=== PATIENT | male | born 1975 | race Caucasian/White ===

== ENCOUNTER 2024-05-22 13:18 | Inpatient (IN) | payer OTHER, SELFPAY ==
[2024-05-22] VITALS (9 sets, daily range): BP systolic 128–149; BP diastolic 62–95; PULSE 102–128; RESP 16–20; TEMP 36.1–36.8; O2SAT 94–97; BMI 36.3; BMI 31.8
--- NOTE | 2024-05-22 13:25 | EKG12_ITS ---
Test Reason : AM EKG Blood Pressure : / mmHG Vent. Rate : 093 BPM Atrial Rate : 093 BPM P-R Int : 156 ms QRS Dur : 138 ms QT Int : 386 ms P-R-T Axes : 052 -47 -15 degrees QTc Int : 479 ms Normal sinus rhythm Right bundle branch block Left anterior fascicular block Bifascicular block Anteroseptal infarct , age undetermined Abnormal ECG When compared with ECG of 22-MAY-2024 14:33, MANUAL COMPARISON REQUIRED, DATA IS UNCONFIRMED Confirmed by Jose Hall ([id number]), film or videotape editor MICAH MANUEL ([id number]) on 05/26/2024 9:28:42 AM Referred By: Confirmed By:Jose Hall
--- NOTE | 2024-05-22 13:31 | ED.VIS.DYS ---
HPI History of Present Illness Chief Complaint: Shortness of Breath Detail of Chief Complaint: Exertional dyspnea and chest pain. Informant: patient and spouse/S.O. Onset/Context/Timing Onset: Days Context: gradual Timing: Intermittent Quality: Positive for Dyspnea on exertion Current Severity: Mild Maximum Severity: Mild Worsened by: Exertion Relieved by: Rest Associated Symptoms Chest Pain: Positive for Intermittent Narrative Narrative: 49-year-old male history of diabetes. No prior cardiac disease. No history of DVT or PE or risk factors. For the last 5 to 6 days has had exertional shortness of breath which she is noted is much more than his baseline. And he is also had some exertional chest discomfort. Today wanting to see his primary care provider nurse practitioner at the local [facility]. And she sent him to the ER for further evaluation. He denies any recent travel, surgery or immobilization. He denies any calf pain or swelling. He denies any hemoptysis. Currently he is not having any chest pain. PE Risk Factors: Negative for Cancer, OCP + Smoking + > 35, Prior DVT or PE, Recent immobilization, Recent surgery or Recent travel Prior similar symptoms: No Recent Illness/Hospitalization: No PFSH [facility] Medical History (Updated 05/22/24 @ 14:[address] Ramy Beck MD) Diabetes mellitus Home Medications ?Medication ?Instructions ?Recorded ?Last Taken ?Type insulin lispro protamine-lispro 40 unit subcut BID 05/22/24 Unknown History 100 unit/mL (75-25) subcutaneous pen (Humalog Mix 75-25 KwikPen) metformin 1,000 mg tablet 1,000 mg PO BID 05/22/24 Unknown History Allergy/AdvReac Type Severity Reaction Status Date / Time No Known Allergies Allergy Verified 05/22/24 13:20 Surgical History (Updated 05/22/24 @ 13:40 by Shell Salguero) Hx of cholecystectomy Social History Smoking Status: Never smoker ROS ROS ED ROS Narrative Denies recent illness. He has had recent exertional dyspnea and exertional chest pain. Constitutional Constitutional ED: Denies chills or fever(s) Eyes Eyes: Denies blurry vision ENT ENT ED: Denies ear pain Cardiovascular Cardiovascular: Reports chest pain Respiratory/Chest Respiratory/Chest: Reports dyspnea on exertion Gastrointestinal Gastrointestinal: Denies abdominal pain, constipation, diarrhea or melena Genitourinary Genitourinary ED: Denies dysuria or hematuria Musculoskeletal Musculoskeletal: Denies arthralgias, back pain, myalgias or neck pain Integumentary Denies abscess, Abrasions or rash Neurologic Neurologic: Denies headache(s) Psychiatric Psychiatric: Denies anxiety, depression or suicidal ideation Endocrine Endocrinology: Denies cold intolerance or heat intolerance Hematologic/Lymphatic Hematologic/Lymphatic: Denies easy bleeding, easy bruising or lymphadenopathy Allergic/Immunologic Allergic/Immunologic ED: Denies mouth swelling, tongue swelling or urticaria EXAM Physical Exam Narrative Exam Narrative: 49-year-old male status vital signs stable afebrile. No acute distress. at bedside. H EENT exam unremarkable. Neck nontender JVD. Lungs clear to auscultation bilateral. Heart regular just go dictated regular rhythm rate about 110 no murmur. Chest wall ribs nontender. Abdomen soft nontender. Moving all 4 extremities. Nontender no edema. No cords. Neurologically is awake and alert no focal motor deficits. Const Vital Signs: 05/22/24 13:20 Temperature 97 F L Temperature Source Temporal Pulse Rate 128 H Respiratory Rate 20 H Blood Pressure 148/95 H Blood Pressure Mean 112 Pulse Ox 97 Oxygen Delivery Method Room Air Positive well nourished and well developed; Negative for cachectic, contractures or unkempt General Appearance ED: well developed and NAD; Negative for unkempt, cachectic, contractures or pallor Nutritional Appearance: Negative for cachectic HEENT Reports moist mucous membranes atraumatic; Negative for trauma or tenderness Eyes PERRL and EOMs intact bilaterally General Eye ED: Negative for pale conjunctiva or scleral icterus Neck no lymphadenopathy, supple, no meningeal signs and no JVD General: Negative for tenderness Lymph Lymphatic: Negative for other Chest Wall Chest: Negative for other Resp normal respiratory effort and clear to auscultation bilaterally Effort and Inspection: Negative for pain with movement Auscultation: Negative for rales, rhonchi, wheezes or diminished lung sounds Cardio regular rhythm, S1 normal heart sound, S2 normal heart sound and no murmurs; Negative for regular rate Rate: tachycardic Rhythm: Negative for abnormal rhythm GI non-tender, non-distended and no masses Inspection: Negative for other Palpation: soft; Negative for tender or rebound tenderness present Back/Spine no CVA tenderness and normal to inspection General Back: Negative for CVA tenderness or tenderness Extremity normal to inspection General Extremety ED: Negative for edema, tenderness or other findings General Extremity: Negative for edema or other findings Neuro oriented x3 and CN's II-XII intact bilaterally Sensorium / Orientation: alert, oriented to person, oriented to place and oriented to time; Negative for orientation impaired, confused or lethargic Speech: speech normal Motor Exam: strength 5/5 throughout Psych mental status grossly normal Appearance: Negative for unkempt Attitude: No agitated Mood & Affect: Negative for depressed, anxious or tearful Thought Process: No normal thought process Skin no wounds and skin turgor normal General Skin Exam: Negative for jaundice or pallor Lesions: no lesions Rashes: no rashes Trauma: Negative for abrasion, laceration or puncture MDM MDM MDM Narrative Medical decision making narrative: 49-year-old diabetic male with exertional chest pain exertional dyspnea. Concerning for angina. Undergo cardiac workup. His exam is normal. There is no reproducible pain. He has no history or risk of DVT or PE. I did explain to him already that no matter what his test show I would plan on admitting him for further cardiac evaluation but is a very concerning story for possible coronary disease. Repeat exam unchanged patient doing well at 2:04 PM. I went over test results both he and his . Hospitalist on page for admission. History & Record Review Discussion w/independent historian: Patient and Family Additional record(s) reviewed:: Prior inpatient record, Prior outpatient record, Prior ED visit and Prior labs Lab Data Attestation: I reviewed the patient's lab results. Lab results narrative: CBC normal. White count 8. H&H 15 and 46. Platelets 359. Electrolytes show sodium 133. Gap 8. Normal BUN and creatinine. Glucose 428. Troponin is elevated at 935. Chest x-ray shows borderline cardiomegaly with vascular congestion in the bases. Labs: Laboratory Results - last 24 hr 05/22/24 13:25 WBC 8.5 RBC 5.18 Hgb 15.1 Hct 46.9 MCV 90.5 MCH 29.2 MCHC 32.2 RDW Std Deviation 43.5 RDW Coeff of Lisa 13.2 Plt Count 359 MPV 11.0 Immature Gran % (Auto) 0.500 Neut % (Auto) 70.8 H Lymph % (Auto) 18.3 L [place] % (Auto) 8.4 Eos % (Auto) 1.5 Baso % (Auto) 0.5 Absolute Neuts (auto) 6.0 Absolute Lymphs (auto) 1.55 Nucleated RBC % 0 Sodium 133 L Potassium 4.1 Chloride 100 Carbon Dioxide 25.0 Anion Gap 8 BUN 11 Creatinine 1.10 Estim Creat Clear Calc 111.36 Est GFR (MDRD) Af Amer 91 Est GFR (MDRD) Non-Af 75 BUN/Creatinine Ratio 10.0 Glucose 428 H Calcium 9.4 Troponin I High Sens 935 H* Radiography Chest X-Ray - ED: 1 View, Read by ED Physician, Lungs, Mediastinum, Bony Structures and Chronic Changes Diagnostic Testing: Chest x-ray, portable, single view interpreted by myself shows borderline cardiomegaly. Vascular congestion in both bases. Rhythm Strip Rhythm Strip: Sinus Tach Rate: 101 Ectopy: None EKG Initial EKG: Attestation: I personally reviewed and interpreted this EKG as follows: Interpretation: Sinus Tachycardia Comments: Sinus tachycardia 101. Right bundle branch block. Left anterior fascicular block. No acute ST elevation. A Discharge Plan Triage Chief Complaint: Shortness of Breath ED Provider: Ramy Beck Dx/Rx/DC Orders Clinical Impression: Chest pain, exertional, Exertional dyspnea, Non-ST elevated myocardial infarction, Diabetes, Acute hyperglycemia Prescriptions: No Action insulin lispro protamin-lispro [Humalog Mix 75-25 KwikPen] 100 unit/mL (75-25) insulin pen 40 unit subcut BID metformin 1,000 mg tablet 1,000 mg PO BID Primary Care Provider: Renee Hoyos Referrals: Renee Hoyos, [employer] [Primary Care Provider] - Print Language: Sami Disposition Disposition: Acute Care Hospital [facility]
[2024-05-22 13:36] LABS: Absolute Lymphocyte Count 1.55 X10^3/uL (0.83-4.51); Basophil# 0.04 X10^3/uL; Basophil% 0.5 % (0-1); Eosinophil# 0.13 X10^3/uL; Eosinophils% 1.5 % (0-5); Hematocrit 46.9 % (40-54); Hemoglobin 15.1 g/dL (13.0-16.5); Lymphocyte # 1.55 X10^3/ul (0.83-4.51); Lymphocyte % 18.3 % (19-41); Mean Corp Hgb Conc 32.2 g/dL (32-36); Mean Corpuscular Hgb 29.2 pg (27.0-32.0); Mean Corpuscular Volume 90.5 fL (80-94); Monocyte# 0.71 X10^3/uL; Monocyte% 8.4 % (0-10); NRBC Flagged by Analyzer 0 % (0-5); Neutrophil # 5.99 X10^3/uL (2.7-7.7); Neutrophil % 70.8 % (47-70); Platelet Count 359 K/mm3 (150-450); RBC Distribution Width CV 13.2 % (11.6-14.6); RBC Distribution Width SD 43.5 fl (35.1-43.9); Red Blood Count 5.18 M/mm3 (4.6-6.2); White Blood Count 8.5 K/mm3 (4.4-11.0)
--- NOTE | 2024-05-22 13:40 | RAD_ITS ---
INDICATION: chest pain EXAMINATION/TECHNIQUE: X-RAY - XR Chest 1 View COMPARISON: No relevant prior comparison study available FINDINGS: LINES/DEVICES: None. LUNGS: Prominence of the pulmonary vasculature and interstitial markings. Blunting of the right costophrenic angle. MEDIASTINUM AND CARDIOVASCULAR STRUCTURES: Cardiac silhouette not enlarged. Central airways and mediastinal contour are unremarkable. BONES AND SOFT TISSUES: Unremarkable. RAD/Chest 1 View (Portable) IMPRESSION: Pulmonary venous congestion with probable mild interstitial pulmonary edema. Electronically Signed: Christian Huff MD at 14:20 EDT ,
[2024-05-22] MEDS: Aspirin 81 MG TAB.CHEW 324 MG PO (13:51)
[2024-05-22 13:57] LABS: Anion Gap 8 (5-15); BUN 11 mg/dL (7-18); Calcium,Total 9.4 mg/dL (8.5-10.1); Chloride 100 mmol/L (98-107); EST Glomerular Filtration Rate 75 mL/min (>60); Est Glom Filt Rate - Afr Amer 91 mL/min (>60); Estimated Creatinine Clearance 111.36 ml/min; Glucose 428 mg/dL (74-106); Potassium 4.1 mmol/L (3.5-5.1); Sodium Level 133 mmol/L (136-145); Troponin-I HS (w/2H Reflex) 935 pg/mL (3.0-78.0)
--- NOTE | 2024-05-22 14:08 | PCM.HP.STD ---
HPI - General General Date of Admission: 05/22/24 Date of Service: 05/22/24 Chief Complaint: Shortness of Breath HPI Narrative SAYRA WALTERS, is a 49 M who presented to the emergency department at [facility] on 05/22/2024 with a chief complaint of shortness of breath. Patient states he has been having shortness of breath for about 5 to 7 days and started having chest pain over the last couple days. Due to his symptoms, he went to see his primary care nurse practitioner at [facility] and they sent him to the emergency department for further evaluation. He states his shortness of breath was predominantly exertional and abated with rest and his chest pain has been similar. He is currently chest pain-free. He is denying any associated nausea or diaphoresis. He states his father was diagnosed with coronary disease he believes in his 50s and his mother was diagnosed with coronary disease in her 70s. He has a history of diabetes and states he has previously been on lisinopril which caused cough but is not currently on any antihypertensives and also was previously on atorvastatin and is not sure why this was discontinued. He has never smoked and denies any other substance use. Vital signs on presentation showed temperature of 97, heart rate 128, respiratory rate 20, blood pressure 148/95, and pulse ox was 97% on room air. CBC was unremarkable. Coags were normal. Chemistry panel shows mild hyponatremia with a sodium of 133 however this is likely pseudohyponatremia as his blood glucose level is 428. His initial troponin was 935. Checks x-ray showed mild vascular congestion in the bases bilaterally and borderline cardiomegaly and EKG showed sinus tachycardia with a right bundle branch block as well as a left anterior fascicular block and T wave inversion in the anterior and lateral leads. No ST-T wave elevation was noted. He was started on a heparin drip and I highly suspect that he did have an infarct based on his EKG changes sometime in the last 5 days. [facility] Medical History (Updated 05/22/24 @ 17:[address] Montse Liu, ) Obstructive sleep apnea Obesity Diabetes mellitus Home Medications ?Medication ?Instructions ?Recorded ?Last Taken ?Type insulin lispro protamine-lispro 40 unit subcut BID 05/22/24 Unknown History 100 unit/mL (75-25) subcutaneous pen (Humalog Mix 75-25 KwikPen) metformin 1,000 mg tablet 1,000 mg PO BID 05/22/24 Unknown History Allergy/AdvReac Type Severity Reaction Status Date / Time lisinopril AdvReac Mild cough Verified 05/22/24 15:26 Family History Other CAD (coronary artery disease) Diabetes Heart disease Hypertension Parkinson's disease Surgical History Hx of cholecystectomy Social History (Updated 05/22/24 @ 17:[address] Montse Liu DO) household members: spouse Smoking Status: Never smoker alcohol intake: never substance use type: does not use ROS Constitutional Constitutional: Reports fatigue; Denies anorexia, change in weight, chills, fever(s), malaise, night sweats, weakness or other Eyes Eyes: Denies blurry vision, change in eye color, change in vision, discharge from eye(s), double vision, erythema, eye pain, loss of vision or other ENT HEENT: Denies abnormal hearing, dysphagia, ear pain, epistaxis, headache(s), hearing loss, nasal congestion, nasal discharge, post nasal drip, sinus pressure, sore throat or other Cardiovascular Cardiovascular: Reports chest pain and dyspnea on exertion; Denies claudication, edema, lightheadedness, orthopnea, palpitations, paroxysmal nocturnal dyspnea, rapid heart rate, syncope or other Respiratory/Chest Respiratory/Chest: Reports shortness of breath with exertion; Denies cough, dyspnea, excessive phlegm production, hemoptysis, productive cough, shortness of breath at rest, wheezing or other Gastrointestinal Gastrointestinal: Denies abdominal pain, coffee ground emesis, constipation, diarrhea, dyspepsia, hematemesis, hematochezia, loose stools, melena, nausea, vomiting or other Genitourinary Genitourinary: Denies burning urination, difficulty urinating, dysuria, hematuria, nocturia, urinary frequency, urinary hesitancy, urinary incontinence, urinary urgency or other Musculoskeletal Musculoskeletal: Denies arthralgias, back pain, joint pain, joint stiffness, joint swelling, myalgias, neck pain or other Neurologic Neurologic: Denies abnormal gait, abnormal speech, confusion, disequilibrium, dizziness, focal weakness, headache(s), numbness, paresthesias, seizure-like activity, seizures, syncope, tingling, tremor(s) or other Psychiatric Psychiatric: Denies anxiety, depression, homicidal ideation, suicidal ideation or other Endocrine Endocrinology: Denies change in body appearance, cold intolerance, excessive sweating, heat intolerance, polydipsia, polyuria or other Hematologic/Lymphatic Hematologic/Lymphatic: Denies anemia, easy bleeding, easy bruising, lymphadenopathy or other Vital Signs Vital Signs Vital Signs: 05/22/24 13:20 Temperature 97 F L Temperature Source Temporal Pulse Rate 128 H Respiratory Rate 20 H Blood Pressure 148/95 H Blood Pressure Mean 112 Pulse Ox 97 Oxygen Delivery Method Room Air Weight Weight: 125.146 kg Body Mass Index (BMI) 36.3 Physical Exam Const alert, oriented x3, no apparent distress and well nourished; Negative for average body habitus or healthy appearing Constitutional Narrative: Obese, middle-aged, white male, lying in bed with decontamination technician completing echocardiogram, currently appears comfortable, at bedside, does not appear toxic General Appearance: cooperative HEENT normocephalic, head/scalp atraumatic, hearing grossly normal bilaterally and moist oral mucous membranes HEENT Narrative: Mallampati 4, no thrush, neck is short and thick Eyes PERRL Neck no lymphadenopathy and supple Neck Narrative: Neck is short and thick, trachea midline, no thyroid enlargement noted Resp normal respiratory effort, no retractions and no use of accessory muscles Resp Narrative: Diminished at bases bilaterally Auscultation: Negative for rales, rhonchi or wheezes Cardio regular rhythm, S1 normal heart sound, S2 normal heart sound, no murmurs, no rub, no gallops and no clicks Cardio Narrative: Mild tachycardia GI normal to inspection, nondistended, normoactive bowel sounds, soft to palpation and non-tender Extremity Extremity Narrative: Trace bilateral lower extremity pitting edema, no cyanosis or clubbing Neuro oriented x3, CN's II-XII intact bilaterally, moves all extremities and no focal motor deficits Speech: speech normal Psych affect normal Psych Narrative: Very pleasant, interacts appropriately Results Lab / Micro Data 05/22/24 13:25 05/22/24 13:25 Labs: Laboratory Results - last 24 hr 05/22/24 13:25: WBC 8.5, RBC 5.18, Hgb 15.1, Hct 46.9, MCV 90.5, MCH 29.2, MCHC 32.2, RDW Std Deviation 43.5, RDW Coeff of Lisa 13.2, Plt Count 359, MPV 11.0, Immature Gran % (Auto) 0.500, Neut % (Auto) 70.8 H, Lymph % (Auto) 18.3 L, [place] % (Auto) 8.4, Eos % (Auto) 1.5, Baso % (Auto) 0.5, Absolute Neuts (auto) 6.0, Absolute Lymphs (auto) 1.55, Nucleated RBC % 0, Sodium 133 L, Potassium 4.1, Chloride 100, Carbon Dioxide 25.0, Anion Gap 8, BUN 11, Creatinine 1.10, Estim Creat Clear Calc 111.36, Est GFR (MDRD) Af Amer 91, Est GFR (MDRD) Non-Af 75, BUN/Creatinine Ratio 10.0, Glucose 428 H, Calcium 9.4, Troponin I High Sens 935 H* Rhythm Strip Rhythm Strip: Sinus Tach Rate: 101 Ectopy: None Assessment & Plan Assessment/Plan (1) Acute hyperglycemia: (2) Non-ST elevated myocardial infarction: (3) Exertional dyspnea: (4) Chest pain, exertional: PLAN: Plan NSTEMI -Admit to PCU -Aspirin loaded in emergency department will continue low-dose aspirin -Continue heparin drip initiated in the emergency department -As needed nitro as patient is currently pain-free -Start metoprolol 25 twice daily -Start losartan 25 mg daily -ACEI cough -Start high dose statin -Check A1c -Check Lipids -Check Echo -Check BNP -Consult Cardiology for probable cath DM-2 -Suspect uncontrolled based on marked hyperglycemia at the time of presentation -Check hemoglobin A1c -Hold home insulin as he is on 75/25 -Start basal insulin 30 units at at bedtime -Give 20 units subcu stat now -SSI for now however anticipate patient will need prandial insulin scheduled as well -N.p.o. after midnight for possible cardiac catheterization tomorrow Elevated blood pressure -Patient denies history of hypertension however blood pressures are markedly elevated in emergency department -Will start low-dose metoprolol and losartan for now but may need uptitrated -Echocardiogram is pending -Continue to monitor Obstructive sleep apnea -Home CPAP is ordered Obesity -Recommend weight loss -BMI is 31.8 -Complicates treatment, prognosis, outcomes DVT prophylaxis -Patient is currently on a heparin drip -If heparin drip is discontinued would start subcu Lovenox daily CODE STATUS -Full code as verified on admission Charges/Coding Visit Charges Inpatient E&M: 53655 Init Hosp L2
[2024-05-22 14:25] LABS: Prothrombin Time (Protime)PT. 13.6 SECONDS (11.7-14.9)
[2024-05-22 14:26] LABS: Partial Thromboplast Time 24.8 Seconds (24.1-36.2)
[2024-05-22] MEDS: Heparin Injection (Vial) 5,000 UNIT/ML VIAL 4000 UNIT IV (14:45)
[2024-05-22] MEDS: HEPARIN/D5w 25,000 UNITS 25,000 UNITS/250 ML IV.SOLN. 10 UNITS CONT INF (14:46)
--- NOTE | 2024-05-22 14:52 | ECHOCS_ITS ---
Reason For Study: CAD/ASHD Procedure This was a 2D Doppler, Color Flow transthoracic echocardiogram. The study was technically difficult. Contrast injection was performed. Exam performed portable in ED. Left Ventricle Severely dilated left ventricle. Severe LV systolic dysfunction. Estimated LVEF 25 to 30%. Severe anteroseptal and apical hypokinesis to akinesis. Generalized hypokinesis. Right Ventricle Normal right ventricle. Atria The left atrium is mildly enlarged. Normal right atrium. Mitral Valve Trivial mitral valve insufficiency. Tricuspid Valve Normal tricuspid valve. Unable to estimate RV systolic pressure due to inadequate jet, pulmonary artery pressure probably normal. Aortic Valve Trisinus/trileaflet aortic valve. Pulmonic Valve The pulmonic valve is not well visualized. Great Vessels Normal sized aortic root. Pericardium/Pleural Trivial pericardial effusion. Medication Diluted definity 2ml given slow IV push to enhance endocardial definition. MMode/2D Measurements & Calculations LVIDd: 7.0 cm IVSd: 0.66 cm Ao root diam: 3.0 cm LVIDs: 5.0 cm LVPWd: 0.91 cm FS: 28.1 % LAV(MOD-bp): 57.0 ml LVAd ap4: 43.2 cm2 SV(MOD-sp4): 29.7 ml LAV(MOD-bp) Indexed: 23.1 ml/m2 LVLd ap4: 9.1 cm LAV(MOD-sp2): 48.5 ml EDV(MOD-sp4): 166.2 ml LAV(MOD-sp4): 57.2 ml EDV(sp4-el): 174.1 ml LVAs ap4: 38.3 cm2 LVLs ap4: 8.7 cm ESV(MOD-sp4): 136.5 ml ESV(sp4-el): 143.7 ml EF(MOD-sp4): 17.9 % EF(sp4-el): 17.5 % SV(sp4-el): 30.4 ml LA A4 area: 19.5 cm2 LA dimension(2D): 3.5 cm RA A4 area: 11.5 cm2 TAPSE: 2.4 cm Doppler Measurements & Calculations Ao V2 max: 105.5 cm/sec LV V1 max: 100.8 cm/sec PA V2 max: 92.0 cm/sec Ao max P.4 mmHg LV V1 max P.1 mmHg PA V2 mean: 58.7 cm/sec Ao V2 mean: 80.1 cm/sec LV V1 mean P.2 mmHg Ao mean P.9 mmHg LV V1 mean: 69.0 cm/sec Ao V2 VTI: 19.5 cm LV V1 VTI: 16.4 cm AV (velocity ratio): 0.84 ECHO/Echo Complete W/ Contrast Interpretation Summary Severely dilated left ventricle. Severe LV systolic dysfunction. Estimated LVEF 25 to 30%. Severe anteroseptal a nd apical hypokinesis to akinesis. Generalized hypokinesis. The study was technically difficult. Ordering Physician: Montse Liu Referring Physician: EMMETT WILKERSON Performed By: Cherri Bolton RCS
--- NOTE | 2024-05-22 14:52 | EKG12_ITS ---
Test Reason : REPEAT Blood Pressure : / mmHG Vent. Rate : 110 BPM Atrial Rate : 110 BPM P-R Int : 162 ms QRS Dur : 134 ms QT Int : 336 ms P-R-T Axes : 054 -51 -07 degrees QTc Int : 454 ms Sinus tachycardia Right bundle branch block Left anterior fascicular block Bifascicular block Anterolateral infarct , age undetermined Abnormal ECG Confirmed by Jose Hall ([id number]), newspaper editor managing MICAH MANUEL ([id number]) on 05/26/2024 8:53:35 AM Referred By: Confirmed By:Jose Hall
--- NOTE | 2024-05-22 15:04 | PCM.CONS.C ---
Assessment & Plan Assessment/Plan (1) Non-ST elevated myocardial infarction: PLAN: Suspect patient's index coronary event was 5 days ago as per his history. Continue aspirin. Load with clopidogrel. Statins. Low-dose beta-blockers. Recommend coronary angiography with possible revascularization. Risks benefits and alternatives explained to the patient. He understand these and wishes to proceed. Patient will be scheduled for coronary angiography for tomorrow morning. (2) Exertional dyspnea: PLAN: Suspect secondary to #1 above with possible LV systolic dysfunction. Check echocardiogram. (3) Diabetes: PLAN: As per internal medicine. (4) Obesity: PLAN: Lose weight. HPI Consult Data Date of Consult: 05/22/24 HPI Narrative Reason for Consultation: NSTEMI HPI Narrative: 49-year-old gentleman with past medical history significant for diabetes mellitus. According to him, he has had an episode of chest pain this last Sunday. The symptoms lasted about 2 hours at that time. Since then, he has been feeling short of breath with exertion. No further episodes of chest pain either at rest or with exertion. No nausea or vomiting. No orthopnea. No PND. Denies any ankle edema. Patient went to his primary care physician's office today with complaints of shortness of breath. An ECG was done. He was sent for further evaluation to the emergency room. [facility] Medical History (Updated 05/22/24 @ 15:[address] Kayla Gavin MD) Diabetes mellitus Home Medications ?Medication ?Instructions ?Recorded ?Last Taken ?Type insulin lispro protamine-lispro 40 unit subcut BID 05/22/24 Unknown History 100 unit/mL (75-25) subcutaneous pen (Humalog Mix 75-25 KwikPen) metformin 1,000 mg tablet 1,000 mg PO BID 05/22/24 Unknown History Allergy/AdvReac Type Severity Reaction Status Date / Time lisinopril AdvReac Mild cough Verified 05/22/24 15:26 Surgical History (Updated 05/22/24 @ 13:40 by Shell Salguero) Hx of cholecystectomy Social History Smoking Status: Never smoker Physical Exam Narrative Obese. Comfortable. No apparent distress. Jugular venous examination is difficult because of body habitus. Heart sounds 1 and 2 are noted. Positive S3. Chest clear to auscultation bilaterally. No crepitations. Abdomen obese. Alert oriented x 3. Trace bilateral ankle edema. Risk Stratification Risk Stratification Applicable: No Objective Data Vital Signs: Vital Signs Temp Pulse Resp BP Pulse Ox O2 Del Method 97 F L 128 H 20 H 148/95 H 97 Room Air 05/22/24 13:20 05/22/24 13:20 05/22/24 13:20 05/22/24 13:20 05/22/24 13:20 05/22/24 13:45 Oxygen Delivery Method Room Air Weight: 275 lb 14.4 oz Body Mass Index (BMI) 36.3 Lab / Micro Data 05/22/24 13:25 05/22/24 13:25 Labs: Laboratory Results - last 24 hr 05/22/24 13:25: WBC 8.5, RBC 5.18, Hgb 15.1, Hct 46.9, MCV 90.5, MCH 29.2, MCHC 32.2, RDW Std Deviation 43.5, RDW Coeff of Lisa 13.2, Plt Count 359, MPV 11.0, Immature Gran % (Auto) 0.500, Neut % (Auto) 70.8 H, Lymph % (Auto) 18.3 L, [place] % (Auto) 8.4, Eos % (Auto) 1.5, Baso % (Auto) 0.5, Absolute Neuts (auto) 6.0, Absolute Lymphs (auto) 1.55, Nucleated RBC % 0, PT 13.6, INR 1.0, APTT 24.8, Sodium 133 L, Potassium 4.1, Chloride 100, Carbon Dioxide 25.0, Anion Gap 8, BUN 11, Creatinine 1.10, Estim Creat Clear Calc 111.36, Est GFR (MDRD) Af Amer 91, Est GFR (MDRD) Non-Af 75, BUN/Creatinine Ratio 10.0, Glucose 428 H, Calcium 9.4, Troponin I High Sens 935 H* Rhythm Strip Rhythm Strip: Sinus Tach Rate: 101 Ectopy: None Cardiology Labs/Tests 05/22/24 13:25: WBC 8.5, RBC 5.18, Hgb 15.1, Hct 46.9, MCV 90.5, MCH 29.2, MCHC 32.2, Plt Count 359, MPV 11.0, Immature Gran % (Auto) 0.500, Neut % (Auto) 70.8 H, Lymph % (Auto) 18.3 L, [place] % (Auto) 8.4, Eos % (Auto) 1.5, Baso % (Auto) 0.5, Absolute Neuts (auto) 6.0, Nucleated RBC % 0, PT 13.6, INR 1.0, APTT 24.8, Sodium 133 L, Potassium 4.1, Chloride 100, Carbon Dioxide 25.0, Anion Gap 8, BUN 11, Creatinine 1.10, Est GFR (MDRD) Af Amer 91, Est GFR (MDRD) Non-Af 75, BUN/Creatinine Ratio 10.0, Glucose 428 H, Calcium 9.4 Rhythm: EKG: ECHO: Stress Test: Cardiac Cath: PCI: CT Surgery: Holter monitor: EPS: PPM: CXR: Chest CT Scan: Radiography Diagnostic Testing: Radiology Impression Chest X-Ray 05/22/24 13:40 IMPRESSION: Pulmonary venous congestion with probable mild interstitial pulmonary edema. Electronically Signed: Christian Huff MD at 14:20 EDT ,
[2024-05-22] MEDS: Insulin Lispro 100 UNIT/ML INSULN.PEN 20 UNIT SC (15:11)
[2024-05-22 15:33] LABS: Reflex Troponin-HS? (from REC) Y
[2024-05-22] MEDS: Clopidogrel Bisulfate 300 MG Tablet PO (15:51)
[2024-05-22] MEDS: Nitroglycerin Oint 1 INCH PACKET TD ×2 (15:54→21:32)
[2024-05-22] MEDS: Losartan Potassium 25 MG Tablet PO (15:58)
[2024-05-22] MEDS: Insulin Lispro 100 UNIT/ML INSULN.PEN SC (16:00)
[2024-05-22 16:04] LABS: Hemoglobin A1c 11.1 % (3.8-5.6)
[2024-05-22 16:39] LABS: Bedside Glucose 328 mg/dL (74-106)
[2024-05-22 16:51] LABS: Troponin-I HS 967 pg/mL (3.0-78.0)
[2024-05-22] MEDS: Empagliflozin 10 MG Tablet PO (17:15)
[2024-05-22] MEDS: Spironolactone 25 MG Tablet 12.5 MG PO (17:16)
[2024-05-22] MEDS: 0.9% Normal Saline (1000mL) 1,000 ML 15 ML IV (17:16)
[2024-05-22 17:56] LABS: BNP,B-Type NATRIURETIC PEPTIDE 218.6 pg/mL (0-100)
[2024-05-22 21:01] LABS: Partial Thromboplast Time 29.5 Seconds (24.1-36.2)
[2024-05-22] MEDS: Insulin Glargine-YFGN 100 UNIT/ML Pen 30 UNIT SC (21:14)
[2024-05-22] MEDS: Metoprolol Tartrate 25 MG Tablet PO (21:15)
[2024-05-22] MEDS: Atorvastatin Calcium 80 MG Tablet PO (21:15)
[2024-05-22 21:41] LABS: Bedside Glucose 189 mg/dL (74-106)
[2024-05-23] VITALS (15 sets, daily range): BP systolic 102–147; BP diastolic 69–95; PULSE 94–109; RESP 16–18; TEMP 36.4–37.1; O2SAT 93–97
[2024-05-23 03:44] LABS: Hematocrit 42.5 % (40-54); Hemoglobin 13.7 g/dL (13.0-16.5); Mean Corp Hgb Conc 32.2 g/dL (32-36); Mean Platelet Vol. 10.7 fl (6.2-12.0); Platelet Count 324 K/mm3 (150-450); RBC Distribution Width CV 13.2 % (11.6-14.6); RBC Distribution Width SD 43.4 fl (35.1-43.9); Red Blood Count 4.72 M/mm3 (4.6-6.2); White Blood Count 8.3 K/mm3 (4.4-11.0)
[2024-05-23 03:53] LABS: Partial Thromboplast Time 33.4 Seconds (24.1-36.2)
[2024-05-23 04:07] LABS: ALB/GLOB Ratio 0.8 RATIO (0.9-2.4); AST(SGOT) 17 U/L (15-37); Alanine Aminotransfer ALT/SGPT 31 U/L (16-61); Albumin, Serum 2.9 g/dL (3.2-5.0); Alkaline Phosphatase 108 U/L (45-117); Anion Gap 11 (5-15); BUN 10 mg/dL (7-18); BUN/Creat Ratio 13.9 RATIO (10-20); Chloride 104 mmol/L (98-107); Cholesterol 150 mg/dL (200); Creatinine, Serum 0.72 mg/dL (0.70-1.30); EST Glomerular Filtration Rate 122 mL/min (>60); Est Glom Filt Rate - Afr Amer 148 mL/min (>60); Globulin 3.5 g/dL (2.2-4.2); Glucose 191 mg/dL (74-106); High Density Lipoprotein 44 mg/dL; Magnesium 1.9 mg/dL (1.6-2.6); Potassium 3.8 mmol/L (3.5-5.1); Protein, Total 6.4 g/dL (6.4-8.2); Sodium Level 139 mmol/L (136-145); Triglycerides 97 mg/dL; Very Low Density Lipoprotein 19 mg/dL (5-40)
[2024-05-23] MEDS: Heparin Injection (Vial) 5,000 UNIT/ML VIAL IV (04:30)
--- NOTE | 2024-05-23 05:55 | EKG12_ITS ---
Test Reason : SOB Blood Pressure : / mmHG Vent. Rate : 101 BPM Atrial Rate : 101 BPM P-R Int : 160 ms QRS Dur : 136 ms QT Int : 356 ms P-R-T Axes : 057 -55 006 degrees QTc Int : 461 ms Sinus tachycardia Right bundle branch block Left anterior fascicular block Bifascicular block Anterolateral infarct , age undetermined Abnormal ECG Confirmed by Jose Hall ([id number]), purchasing expeditor MICAH MANUEL ([id number]) on 05/26/2024 8:52:38 AM Referred By: Confirmed By:Jose Hall
[2024-05-23] MEDS: Metoprolol Tartrate 25 MG Tablet PO ×2 (06:51→20:56)
[2024-05-23] MEDS: Aspirin E.C. 81 MG Tablet PO (06:51)
[2024-05-23] MEDS: Nitroglycerin Oint 1 INCH PACKET TD ×3 (06:52→20:56)
[2024-05-23 07:16] LABS: Bedside Glucose 170 mg/dL (74-106)
[2024-05-23] MEDS: Losartan Potassium 25 MG Tablet PO (07:20)
[2024-05-23] MEDS: Clopidogrel Bisulfate 75 MG Tablet PO (07:20)
--- NOTE | 2024-05-23 08:13 | PN.HOSP_ITS ---
Reason for Visit Reason for Visit: Diagnoses Type 2 diabetes mellitus without complications (05/22/24) Obesity, unspecified (05/22/24) Non-ST elevation (NSTEMI) myocardial infarction (05/22/24) Other forms of dyspnea (05/22/24) Chest pain, unspecified (05/22/24) Hyperglycemia, unspecified (05/22/24) Subjective Subjective No further chest pain. Had been having chest pain and [place] for 5-days prior to arrival. Objective Data Objective Data Vital Signs: Vital Signs Temp Pulse Resp BP Pulse Ox O2 Del Method 36.6 C 96 17 108/78 95 Room Air 05/23/24 06:44 05/23/24 06:51 05/23/24 06:44 05/23/24 06:52 05/23/24 06:44 05/23/24 07:40 Oxygen Delivery Method Room Air Weight: 109.4 kg Body Mass Index (BMI) 31.8 Intake & Output: Intake and Output for Last 24 Hours 05/21/24 05/22/24 05/23/24 23:59 23:59 23:59 Intake Total 428.17 / 428.17 123.33 / 123.33 Balance 428.17 / 428.17 123.33 / 123.33 Lab / Micro Data 05/23/24 03:35 05/23/24 03:35 Labs: Laboratory Results - last 24 hr 05/22/24 13:25: WBC 8.5, RBC 5.18, Hgb 15.1, Hct 46.9, MCV 90.5, MCH 29.2, MCHC 32.2, RDW Std Deviation 43.5, RDW Coeff of Lisa 13.2, Plt Count 359, MPV 11.0, Immature Gran % (Auto) 0.500, Neut % (Auto) 70.8 H, Lymph % (Auto) 18.3 L, [place] % (Auto) 8.4, Eos % (Auto) 1.5, Baso % (Auto) 0.5, Absolute Neuts (auto) 6.0, Absolute Lymphs (auto) 1.55, Nucleated RBC % 0, PT 13.6, INR 1.0, APTT 24.8, S odium 133 L, Potassium 4.1, Chloride 100, Carbon Dioxide 25.0, Anion Gap 8, BUN 11, Creatinine 1.10, Estim Creat Clear Calc 111.36, Est GFR (MDRD) Af Amer 91, Est GFR (MDRD) Non-Af 75, BUN/Creatinine Ratio 10.0, Glucose 428 H, Hemoglobin A1c 11.1 H, Calcium 9.4, Troponin I High Sens 935 H*, B-Natriuretic Peptide 218.6 H 05/22/24 15:54: Troponin I High Sens 967 H* 05/22/24 16:00: POC Glucose 328 H 05/22/24 20:36: APTT 29.5 05/22/24 21:11: POC Glucose 189 H 05/23/24 03:35: WBC 8.3, RBC 4.72, Hgb 13.7, Hct 42.5, MCV 90.0, MCH 29.0, MCHC 32.2, RDW Std Deviation 43.4, RDW Coeff of Lisa 13.2, Plt Count 324, MPV 10.7, APTT 33.4, Sodium 139, Potassium 3.8, Chloride 104, Carbon Dioxide 24.0, Anion Gap 11, BUN 10, Creatinine 0.72, Estim Creat Clear Calc 159.20, Est GFR (MDRD) Af Amer 148, Est GFR (MDRD) Non-Af 122, BUN/Creatinine Ratio 13.9, Glucose 191 H , Calcium 9.0, Phosphorus 4.0, Magnesium 1.9, Total Bilirubin 0.70, AST 17, ALT 31, Alkaline Phosphatase 108, Total Protein 6.4, Albumin 2.9 L, Globulin 3.5, A lbumin/Globulin Ratio 0.8 L, Triglycerides 97, Cholesterol 150, LDL Cholesterol 87, VLDL Cholesterol 19, HDL Cholesterol 44 05/23/24 06:39: POC Glucose 170 H Radiography Diagnostic Testing: Radiology Impression Chest X-Ray 05/22/24 13:40 IMPRESSION: Pulmonary venous congestion with probable mild interstitial pulmonary edema. Electronically Signed: Christian Huff MD at 14:20 EDT , Echocardiogram 05/22/24 14:52 Interpretation Summary Severely dilated left ventricle. Severe LV systolic dysfunction. Estimated LVEF 25 to 30%. Severe anteroseptal and apical hypokinesis to akinesis. Generalized hypokinesis. The study was technically difficult. Ordering Physician: Montse Liu Referring Physician: EMMETT WILKERSON Performed By: Cherri Bolton RCS Rhythm Strip Rhythm Strip: Sinus Tach Rate: 101 Ectopy: None Physical Exam Const alert and no apparent distress HEENT head/scalp atraumatic and moist oral mucous membranes Resp normal respiratory effort, no retractions and no use of accessory muscles Cardio regular rate, regular rhythm, S1 normal heart sound and S2 normal heart sound GI normal to inspection, nondistended, normoactive bowel sounds, soft to palpation, non-tender and non-distended Neuro Sensorium / Orientation: awake and alert Assessment & Plan Assessment/Plan (1) Acute hyperglycemia: (2) Non-ST elevated myocardial infarction: (3) Exertional dyspnea: (4) Chest pain, exertional: PLAN: Plan NSTEMI * Troponins 935 to 967 * Aspirin loaded in emergency department will continue low-dose aspirin. Heparin gtt. Start metoprolol 25 twice daily. Start losartan 25 mg daily. Start high dose statin * FLP WNL. Check echo. * Multivessel disease on [facility]. Cardiology reaching out to [facility] for referral. DM-2 * Uncontrolled * a1c 11.1. * Started on glarine 30 units QHS. (hold 75/25) - Chronic conditions: * Obstructive sleep apnea-Home CPAP is ordered * Obesity class I: complicates care and recovery. DVT prophylaxis: not indicated as already anticoagulated. CODE STATUS-Full code as verified on admission Charges/Coding Visit Charges Inpatient E&M: 97345 Subs Hosp L2
--- NOTE | 2024-05-23 10:01 | NURSING ---
Gave report to Bobbi in [employer]
--- NOTE | 2024-05-23 10:44 | CASEMGMT ---
Tertiary facilities in-network with patient's insurance: Chris Covert [facility], [facility], [facility], , [facility], [facility], [place], [place].
[2024-05-23] MEDS: Spironolactone 25 MG Tablet 12.5 MG PO (11:27)
[2024-05-23] MEDS: Furosemide 20 MG Tablet PO (11:27)
[2024-05-23] MEDS: Empagliflozin 10 MG Tablet PO (13:53)
[2024-05-23 15:18] LABS: Bedside Glucose 137 mg/dL (74-106)
--- NOTE | 2024-05-23 15:46 | CL.D_ITS ---
Patient Name: SAYRA SCHUMACHER Study Date: 05/23/2024 Performing: Lillie Carbone MD Ht: 73 inches 185.42 cm : 1975 Wt: 241.5 lbs 109.4 kg Age: 49 Gender: male BSA: 2.33 PROCEDURE(S) PERFORMED [id number])[facility] CLINICAL PROFILE AND INDICATIONS Indications: Non-STEMI, LV systolic dysfunction Heart Failure: None CONCLUSIONS Multivessel coronary artery disease as described. RECOMMENDATIONS CT surgery consult for heart team approach for revascularization DESCRIPTION OF PROCEDURE The patient arrived to the procedure lab. The risks and benefits of the procedure as well as a full description of our services here and current unavailability of surgical backup were fully explained to the patient and/or their significant other prior to the catheterization. The Timeout was completed, verifying the correct patient and procedure. The patient's procedural site was prepped and draped in the usual fashion. Local anesthetic was given subcutaneously to right radial region with Lidocaine 2%. Using a modified Seldinger technique, arterial access was obtained via the right radial artery, a 6Fr sheath was inserted. Left Coronary Artery selective angiography was performed in multiple views using a 5 Fr. JL3.5 catheter. Right Coronary Artery selective angiography was then performed in multiple views using a 5 Fr. JR 4 catheter.The arterial sheath was pulled and a TR Band was applied for hemostasis CORONARY ANGIOGRAPHY DOMINANCE: Left Dominant LEFT MAIN: Mild luminal irregularities LEFT ANTERIOR DESCENDING ARTERY: PROX LAD: 99 % Stenosis MID LAD: 100 % Stenosis. Fills via collaterals DIAGONAL 1: Proximal - 30 % Stenosis CIRCUMFLEX ARTERY: Circumflex is the dominant vessel. OM1 has a 90% stenosis in the proximal portion. There is a small branch of the left PDA that is subtotally occluded. RAMUS: 90 % Stenosis RIGHT CORONARY ARTERY: Mild luminal irregularities COMPLICATIONS No Complications PROCEDURE MEDICATIONS Versed 1 mg IV Fentanyl 50 mcg IV Oxygen: 2 L/min via nasal cannula Heparin given IA 05/23/2024 10:26:35 Verapamil 2.5mg, Ntg 100mcgs, 3000 units of Heparin given IA 05/23/2024 10:26:35 SUMMARY OF HEMODYNAMIC DATA Time AIR REST ECG 10:12:44 AO 93/59 (73) SA 10:28:10 Signed By Lillie Carbone MD On 05/23/2024 3:46:09 PM Lillie Carbone MD
[2024-05-23] MEDS: Insulin Lispro 100 UNIT/ML INSULN.PEN SC (16:36)
--- NOTE | 2024-05-23 17:00 | NURSING ---
Called report to Edgardo TAN at [facility]
[2024-05-23 17:11] LABS: Bedside Glucose 207 mg/dL (74-106)
[2024-05-23] MEDS: Atorvastatin Calcium 80 MG Tablet PO (20:56)
[2024-05-23] MEDS: Insulin Glargine-YFGN 100 UNIT/ML Pen 30 UNIT SC (20:57)
[2024-05-23 21:20] LABS: Bedside Glucose 132 mg/dL (74-106)
== END 2024-05-23 21:25 | disposition short-term general hospital (02) | DRG 282 ==
LOC: ED 14:15 → PCU 14:37
PROVIDERS: Admitting Provider Internal Medicine; Emergency Provider Emergency Medicine; PCP Nurse Practitioner Family
DX: I21.4 Non-ST elevation (NSTEMI) myocardial infarction (principal); E11.65 Type 2 diabetes mellitus with hyperglycemia; E66.9 Obesity, unspecified; I25.10 Atherosclerotic heart disease of native coronary artery without angina pectoris; Z79.4 Long term (current) use of insulin; G47.33 Obstructive sleep apnea (adult) (pediatric); R03.0 Elevated blood-pressure reading, without diagnosis of hypertension; Z68.31 Body mass index [BMI] 31.0-31.9, adult; Z79.84 Long term (current) use of oral hypoglycemic drugs; Z79.899 Other long term (current) drug therapy; Z82.49 Family history of ischemic heart disease and other diseases of the circulatory system
CPT/HCPCS: 36415; 71045; 80048; 80053; 80061; 82962; 83036; 83735; 83880; 84100; 84484; 85025; 85027; 85610; 85730; 93005; 93306; 93454; 94668; 97802; 99152; 99153; 99285; J7030; Q9957; Q9967; A4216; C1769; C1894; C8929

== ENCOUNTER → 2024-07-07 | Outpatient (CLI) | payer OTHER, SELFPAY ==
--- NOTE | 2024-07-07 08:10 | PCM.CR.HP2 ---
CR - History & Physical General Arrival date:: 07/07/24 Arrival time:: 08:10 Date of Referral:: 06/13/24 Date of CR Evaluation:: 07/07/24 Referring Physician: Dr. Rodríguez Primary Diagnosis: CABG History of Present Cardiac Event Onset Date Coronary Artery Bypass Graft:: Yes (onset 06/03/24) Vessel: SKINNER-LAD, SVG-Diag, Radial-OM Medications Ambulatory Orders ?Medication ?Instructions ?Recorded insulin lispro protamine-lispro 40 unit subcut BID 05/22/24 100 unit/mL (75-25) subcutaneous pen (Humalog Mix 75-25 KwikPen) metformin 1,000 mg tablet 1,000 mg PO BID 05/22/24 Allergies Allergies lisinopril Adverse Reaction (Mild, Verified 05/22/24 15:26) cough Sleep Disorder Evaluation Hx of Sleep Apnea: Yes Do you snore loudly (louder than talking or can be heard through closed doors)?: No Do you often feel tired/ fatigued/ sleepy during daytime?: No Has anyone observed you stop breathing during sleep?: No History of Hypertension (for STOP score): No STOP Results: Negative Advanced Directives Advanced Directives Power of Molded Rubber Goods 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 Hours worked per day:: 8 Hobbies, Recreation, Social Activities Hobbies: Other (pets, work around house) Recreational Activities: I am able to engage in all my recreational activities Social Environment Status Marital Status: Current Living Arrangements Living Environment:: Spouse Children How many children do you have?: 0 Do any of your children live nearby?: No Safety Do you feel safe in your surroundings?: Yes Assistance Do you need any assistance at home?: no Review of Systems Review of Systems Hints Review of Present Symptoms: Reports Appetite - Normal, Appetite - Special Diet and Sleep - Normal; Denies Shortness of Breath at Rest, Shortness of Breath with Exertion, PVD, Operative Discomfort, Angina, Wound Healing, Dizziness/Lightheadedness, Fatigue, Heart Arrhythmia/Irregularities or Sexual Changes Pain Is Patient Pain Free?: Yes Risk Factor Assessment Chief Complaint Chief Complaint: CABG Vital Signs Pulse Ox: 95 Blood Pressure: 110/66 Pulse Pulse Rate: 78 Hypertension Blood Pressure Sitting - Left Arm: 110/66 Diabetes Diabetic 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: 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) Nutrition Referral for Diabetes: No Obesity Height: 6 ft 1 in Weight:: 268 lb Weight in Pounds: 268.0 lbs Body Mass Index (BMI): 35.3 Nutritional Referral for Obesity: No (declines) Physical Inactivity Physical Inactivity: Reg Exercise 30 min/day Risk Stratification Risk Guidelines: Lowest Risk: Risk Factor for Smoking, Moderate Risk: Risk Factor for Hypertension, Risk Factor for Sedentary Lifestyle and Risk Factor for Depression and Highest Risk: Risk Factor for Dyslipidemia, Risk Factor for Diabetes and Risk Factor for Obesity For Smoking Smoking Risk Guidelines For Dyslipidemia Dyslipidemia Risk Guidelines For Diabetes Mellitus Diabetes Risk Guidelines For Obesity/Overweight Obesity/Overweight Risk Guidelines For Hypertension Hypertension Risk Guidelines For Sedentary Lifestyle Sedentary Lifestyle Risk Guidelines For Depression Depression Risk Guidelines Family History Family History Other CAD (coronary artery disease) Diabetes Heart disease Hypertension Parkinson's disease Motivation Motivation to Participate On a scale of 1 to 10, how prepared are you to commit to attending program?: 9 What do you see as barriers to successfully being able to complete the program?: nothing What do you see as the benefits of succesfully completing the program? In other words, what do you hope to get out of participating in the program?: increased endergy, heart health Are there issues you are dealing with that will interfere with completing the program?: no Do you have a spouse or signficant other, family or friends who will help support you to complete the program?: yes
--- NOTE | 2024-07-07 08:16 | PCM.CR.ITP ---
Diagnosis General Information Admitting Diagnosis: CABG Personal Learning Style:: Audio/Visual Barriers to Learning: No Barriers Stage of change r/t lifestyle modifications:: Contemplation Gave educational material for:: Treating Heart Disease, How The Heart Works, What it means to have Heart Disease, How Coronary Artery Disease is Diagnosed, Heart Procedures, What Heart Medications Do, Risk Factors & Modifications, Living an Active Life, Nutrition, Emotions & Heart Disease, Stress Management & Relaxation and Sleep Disorders & Heart Disease Education/Goals Cardiac Rehabilitation Goals Personal Goals: Initial Assessment: Improve energy level, Get back to work, or to resume activities faster and Improve muscle strength and endurance Scale for measuring improvement of personal goals Diagnosis & Disease Process Outcomes/Goals: Pt IDs own risk factors & lifestyle modifications by Session 10, Verbalizes symptoms of angina & response by session 3., Pt independently manages and Other Additional Outcomes/Goals: Plan/Interventions: Assist Pt to ID & engage in lifestyle modification to reduce CVD risk, Instruct on individual risk factors, Review symptoms of angina & emergency actions, Review secondary diagnosis & identify educational needs. and Other see comment 30 day Reassessments:: Not Met 30 day Reassessments:: Not Met 30 day Reassessments:: Not Met 30 day Reassessments:: Not Met Final Reassessments:: Not Met Safety Referral to Physical Therapy: No Referral to [facility] Case Management: No Fall Risk Assessed:: Yes Assistive Devices:: None Exercise - Initial Assessment Visit Date of Eval: 07/07/24 (initial eval ) Mets: Pre-: >3 METS for 30 minutes by discharge, >5 METS for 30 minutes by discharge and >7 METS for 30 minutes by discharge Physician Prescribed Exercise Modalities: Treadmill, [employer] AD-7, SciFit Stepper, SandboxFit Pro-II Ergometer and SandboxFit Lateral [place] Frequency: 3x/week for 12 weeks [36 sessions] Intensity: 60-80% of age predicted maximum heart rate reserve Duration: 30 - 45 minutes Current METSs:: 3 Target Heart Rate:: 102-128 Resting Blood Pressure: 110/66 EKG Type: ST RBBB L anterior fascicular block bifascicular block Outcomes & Goals Goals:: Verbalizes understanding of THR, RPE & goal METS by session 6, Documents in home exercise log/reports 30 min aerobic 5 day/wk by DC, Demonstrates accurate pulse taking by DC and Other additional outcome/goals: see below Intervention & Plan Exercise Program Goals: Instruct on personal THR & RPE, Instruct on MET level & personal MET goal, Show patient to take own pulse /validate performance until accurate, Instruct on home exercise and Other additional plan/int Physical Activity Home Exercise Physical Activity - Home Exercise: Safe Exercise, Warm-up, Self-monitoring, Cool-Down, Home Exercise > 30 min Daily and Sitting Time <3 hours/daily Outcomes & Goals Outcomes/Goals: Demonstrates correct Warm-up/exercise Cool-Down (S3) if = 2.5 METs, Verbalizes symptoms of exercise intolerance by Session 3 (S3), Demonstrate safe equipment use (S3) & follows exercise prescrition (6) and Other: See below Intervention & Plan Plan/Intervention: Instruct warm-up & cool-down if exercising at > 2 METs, Instruct on symptoms of exercise intolerance & actions to take, Instruct & monitor on saf, Assess intial functional capacity & safety risk and Other See below Nutrition - Initial Assessment Program Goals Nutrition Program Goals Patient has diagnosis of Hyperlipidemia (ICD E78)?: Yes Visit Date of Eval: 07/07/24 (initial eval ) Cholesterol/Lipids (Other Core Measures) Determine presence & major risk factors that modify LDL goal: Hypertension or hypertensive medication, Low HDL cholesterol <40 mg/dL*, Family history of premature CHD in Male < 55 years: female <65 yearsFa and Age men > 45 years; women >/= 55 years Outcomes/Goals: Pt IDs own risk factors & lifestyle modifications by Session 10, Verbalizes symptoms of angina & response by session 3., Pt independently manages and Other Additional Outcomes/Goals: Intervention/Plan: Advocate for lipid panel cholesterol medication if applicable, Instruct on personal lipid levels & lipid goals/NCEP guidelines, Instruct on cholesterol and Other additional plan/int Referral to dietitian:: No (declines) Diabetes (Other Core Measures) Diabetes Type: Diagnosis Type II ICD-10 E11 Insulin dependent injection/pump?: Yes Non-Insulin Dependent?: Yes Do you monitor your blood sugar at home?: Yes Referral to Diabetic Clinic:: No (declines) Outcomes/Goals:: Able to state symptoms of, Able to state, Able to state and Other additional Intervention/Plan:: Instruct on, Refer to, Instruct on and Other Weight Mgt (Other Care) Height: 6 ft 1 in Weight:: 268 lb BMI: 35.3 Diagnosis Overweight/Obesity BMI> 30% ICD-10 E66: Yes Diagnosis High BMI/Morbid Obesity BMI> 35% ICD-10 Z68: Yes Outcomes/Goals: Pt sets, maintains & shows weight loss goal & trend during rehab and Other additional outcomes/goals Intervention/Plan: Instruct on ideal BMI & set weight loss goal w/patient, Assist pt to ID & incorporate diet changes for weight loss by S9, Refer to Structured Weight Loss program as appropriate, Encourage goal of using 250-300dcal per session for weight loss and Other additional plan/interventions Healthy Eating Habits Will attend diet classes:: Yes Outcomes/Goals:: Consume diet rich in vegs,fruits,whole grain/high fiber,fish,lean meat, Limit sat/trans fats,cholesterol & added salts & sugars and Other additional outcome/goals: Intervention/Plan:: Assess current eating habits and Other Additional plan/interventions Education Gave educational materials for:: Signs & symptoms of hypoglycemia, Signs & symptoms of hyperglycemia, Relate diabetes to coronary artery disease and Healthy eating Core - Initial Assessment Visit Date of Eval: 07/07/24 (initial eval ) Medication Compliance Preventative Medication(s):: Aspirin, Statin/lipid and Beta emmie H/O mental health issues: depression, anxiety, or addiction?: No Doesn?t believe in the benefits of treatment?: No Believes medications are unnecessary or harmful?: No Has a concern about medication side effects?: No Expresses concern over the cost of medications?: No Outcomes/Goals: Verbalizes medications,desired effect & common side effects @ DC, Pt self-reports following medication regimen, Keeps card in wallet w/medications listed by DC and Other additional outcome/goals: Interventions/plans: Instruct on medication effects & side effects, Review medication list w/patient every two weeks, Instruct importance of taking meds as ordered & assist problem solving and Other additional Tobacco Use Tobacco Use: Non-smoker Hypertension Resting Blood Pressure:: 110/66 [employer] [place] [employer] Hypertension Guidelines Outcomes/Goals: Able to verbalize/achieve optimal blood pressure <130/80, Incorporates diet changes & exercise for blood pressure control by DC and Other additional outcomes/goals Interventions/plan: Instruct on optimal blood pressure, hypertension & medications, Instruct on effects of sodium, alcohol, stress, exercise &hypertension and Other additional plan/interventions Tobacco Cessation Referral Smoking Cessation Referral:: No Individual Education/Counseling:: No Education Schedule Given:: Yes Psychosocial - Initial Assess VIsit Date of Eval: 07/07/24 (initial eval ) History of previous Mental disease:: No Target Goals Target Goals Psychosocial Test Tool Used:: Girma Landry QOL Cardiac and PHQ-9 Questionnaire phq-9 Severity Referral to Behavioral Health PS - Interventions: Yes: Attend Stress Management Classes Outcomes/Goals: See list Psychosocial Outcomes/Goals:: ID's personal stressors & 2 strategies to manage stress by discharge and Other Additional outcome/goals: Intervention/Plan: See List Interventions/Plan:: Assess stressors,coping strategies & signs of derpression on admission, Instruct/assist pt to develop coping & personal stress Mgt strategies, Refer to Behavioral Health if appropriate, Refer to Physician if appropriate, Instruct patient to recognize signs & symptoms of depression, Instruct patient to recog and Other additional plan/intervention Patient Health Questionnaire PHQ-9 Screening Initial Assessment: 1. Little interest or pleasure in doing things: Not at all 2. Feeling down, depressed, or hopeless: Not at all 3. Trouble falling or staying asleep, or sleeping too much: Not at all 4. Feeling tired or having little energy: Not at all 5. Poor appetite or overeating: Not at all 6. Feeling bad about yourself -- or that you are a failure or have let yourself or your family down: Not at all 7. Trouble concentrating on things, such as reading the newspaper or watching television: Not at all 8. Moving or speaking so slowly that other people could have noticed. Or the opposite - being so fidgety or restless that you have been moving around a lot more than usual: Not at all 9. Thoughts that you would be better off , or of hurting yourself in some way: Not at all How difficult have these problems made it for you to do your work, take care of things at home, or get along with other people?: Not difficult at all Total Score: 0 SONIA-Q SV Test Statements CAD is a disease of the arteries in the heart: False Examples of risk factors for heart disease: True Angina is chest pain or discomfort: True The benefits of resistance training include: True Eating more meat and dairy products: False Anti-platelet medications such as aspirin are important: True The only effective way to manage stress: False An exercise warm-up slowly increases heart rate: True Prepared, processed foods usually have high sodium: True Depression is common after a heart attack: True The statin medications lower cholesterol: True To control blood pressure, lower the amount of sodium: True If someone gets chest discomfort during walking: False Transfats are partially hydrogenated vegetable oils: False Sleep apnea that is not treated increases the risk: True To control cholesterol, one should become a vegetarian: False Someone knows if he/she is exercising at the right level: True Diabetes cannot be prevented with exercise & health eating: True Stress is a large risk for heart attack: True A diet that can help lower blood pressure is rich in: True Total Score Total Correct Responses: 17 Self-Efficacy 6-Item Scale Initial Assessment: We would like to know how confident you are in doing certain activities. Please select your confidence level for: Fatigue Select Number: 8 Physical Discomfort or Pain Select Number: 9 Emotional Distress Select Number: 9 Other Symptoms or Health Problems Select Number: 10 Different Tasks and Activities Select Number: 10 Medication Select Number: 9 Total Score:: 9 Nutrition Survey Nutrition Survey Instructions Scoring Instructions Nutrition Survey Initial: Have you lost >10 lbs over the past 2 months without trying?: No Are you following a special diet at home for diabetes, low fat, or low salt?: Yes Are you interested in meeting with a dietitian for help understanding your diet?: No Do you eat less than 3 meals a day?: No Do you eat fatty meats (dong, sausage, ribs, etc), fried foods, desserts, large amounts of salad dressings, margarine, butter, or cheese most days?: No Do you have food allergies? [Enter types in comment field]: No Do you eat in restaurants more than 3 times a week?: No Do you season food with salt, seasoning salt, or garlic salt?: No Do you used canned, boxed, frozen meals, or soups, seasoning packets?: No Total Score:: 1 Exercise - 30-day Assessment Physician Prescribed Exercise Modalities: Treadmill, [employer] AD-7, SciFit Stepper, SciFit Pro-II Ergometer and SciFit Lateral [place] Exercise - 60-day Assessment Physician Prescribed Exercise Modalities: Treadmill, [employer] AD-7, SciFit Stepper, SciFit Pro-II Ergometer and SciFit Lateral [place] Exercise - 90-day Assessment Physician Prescribed Exercise Modalities: Treadmill, [employer] AD-7, SciFit Stepper, SciFit Pro-II Ergometer and SciFit Lateral [place] Exercise - Final/Discharge Physician Prescribed Exercise Modalities: Treadmill, [employer] AD-7, SciFit Stepper, SciFit Pro-II Ergometer and SciFit Lateral [employer] Frequency: 3x/week for 12 weeks [36 sessions] Intensity: 60-80% of age predicted maximum heart rate reserve Current METSs:: 3 Target Heart Rate:: 102-128 Nutrition - 30-Day Assessment Weight Mgt (Other Care) Height: 6 ft 1 in Weight:: 268 lb BMI: 35.3 Nutrition - 60-Day Assessment Weight Mgt (Other Care) Height: 6 ft 1 in Weight:: 268 lb BMI: 35.3 Core - Final Assessment Hypertension Resting Blood Pressure:: 110/66 [employer] [place] [employer] Hypertension Guidelines Core - 60-Day Assessment Hypertension Resting Blood Pressure:: 110/66 [employer] [place] [employer] Hypertension Guidelines Psychosocial - 30-Day Assess Target Goals Target Goals Referral to Behavioral Health PS - Interventions: Yes: Attend Stress Management Classes Psychosocial - 60-Day Assess Target Goals Target Goals Referral to Behavioral Health PS - Interventions: Yes: Attend Stress Management Classes Psychosocial - 90-Day Assess Target Goals Target Goals Referral to Behavioral Health PS - Interventions: Yes: Attend Stress Management Classes Psychosocial - Final Assessmen Target Goals Target Goals Referral to Behavioral Health PS - Interventions: Yes: Attend Stress Management Classes Nutrition - 90-Day Assessment Weight Mgt (Other Care) Height: 6 ft 1 in Weight:: 268 lb BMI: 35.3 Nutrition - Final Assessment Program Goals Patient has diagnosis of Hyperlipidemia (ICD E78)?: Yes Weight Mgt (Other Care) Height: 6 ft 1 in Weight:: 268 lb BMI: 35.3
[2024-07-07 08:23] VITALS: BP 110/66; PULSE 78; O2SAT 95
[2024-07-07 08:27] VITALS: BP 110/66
[2024-07-07 09:06] VITALS: BP 110/66; BMI 35.3
[2024-07-07 09:07] VITALS: BMI 35.3
== END | disposition home or self-care (01) ==
LOC: CR 08:05
PROVIDERS: PCP Nurse Practitioner Family; Referring Provider Thoracic Surgery (Cardiothoracic Vascular Surgery); Visit Provider Thoracic Surgery (Cardiothoracic Vascular Surgery)
DX: Z95.1 Presence of aortocoronary bypass graft (principal); E11.9 Type 2 diabetes mellitus without complications; Z79.4 Long term (current) use of insulin; E66.9 Obesity, unspecified; Z68.35 Body mass index [BMI] 35.0-35.9, adult; Z79.84 Long term (current) use of oral hypoglycemic drugs; G47.33 Obstructive sleep apnea (adult) (pediatric)

== ENCOUNTER 2024-08-01 13:00 | Outpatient (RCR) | payer OTHER, SELFPAY ==
[2024-07-07 09:06] VITALS: BMI 35.3
--- NOTE | 2024-08-06 08:09 | PCM.CR.ITP ---
Exercise - Initial Assessment Visit Session #:: 10 Physician Prescribed Exercise Modalities: Treadmill, Schwinn Airdyne AD-7 and SciFit Stepper Nutrition - Initial Assessment Weight Mgt (Other Care) Height: 6 ft 1 in Weight:: 258 lb 8 oz BMI: 34.1 Psychosocial - Initial Assess Target Goals Target Goals Referral to Behavioral Health PS - Interventions: Yes: Attend Stress Management Classes Patient Health Questionnaire PHQ-9 Screening 30-Day Re-eval Assessment: 1. Little interest or pleasure in doing things: Not at all 2. Feeling down, depressed, or hopeless: Not at all 3. Trouble falling or staying asleep, or sleeping too much: Not at all 4. Feeling tired or having little energy: Not at all 5. Poor appetite or overeating: Not at all 6. Feeling bad about yourself -- or that you are a failure or have let yourself or your family down: Not at all 7. Trouble concentrating on things, such as reading the newspaper or watching television: Not at all 8. Moving or speaking so slowly that other people could have noticed. Or the opposite - being so fidgety or restless that you have been moving around a lot more than usual: Not at all 9. Thoughts that you would be better off , or of hurting yourself in some way: Not at all How difficult have these problems made it for you to do your work, take care of things at home, or get along with other people?: Not difficult at all Total Score: 0 Self-Efficacy 6-Item Scale 30-Day Re-eval Assessment: We would like to know how confident you are in doing certain activities. Please select your confidence level for: Fatigue Select Number: 8 Physical Discomfort or Pain Select Number: 9 Emotional Distress Select Number: 9 Other Symptoms or Health Problems Select Number: 10 Different Tasks and Activities Select Number: 10 Medication Select Number: 9 Total Score:: 9 Nutrition Survey Nutrition Survey Instructions Scoring Instructions Exercise - 30-day Assessment Visit Date of Eval: 08/06/24 Session #:: 10 Physician Prescribed Exercise Modalities: Treadmill, Schwinn Airdyne AD-7 and SciFit Stepper Frequency: 3x/week for 12 weeks [36 sessions] Intensity: 60-80% of age predicted maximum heart rate reserve Duration: 30 - 45 minutes Current METSs:: 3.9 Target Heart Rate:: 102-128 Current RPE:: 12-13 Maximum Excercise HR:: 124 Resting Blood Pressure: 114/70 Maximum Exercise Blood Pressure: 114/80 EKG Type: NSR to ST with occas PVC and PAC noted Outcomes & Goals Goals:: Verbalizes understanding of THR, RPE & goal METS by session 6, Documents in home exercise log/reports 30 min aerobic 5 day/wk by DC, Demonstrates accurate pulse taking by DC and Other additional outcome/goals: see below Intervention & Plan Exercise Program Goals: Instruct on personal THR & RPE, Instruct on MET level & personal MET goal, Show patient to take own pulse /validate performance until accurate, Instruct on home exercise and Other additional plan/int 30-day Reassessments 30 day Reassessments:: Progressing Reassessment Notes & Comments:: RPE explained to pt. Pt is able to demonstrate understanding. Physical Activity Home Exercise Physical Activity - Home Exercise: Safe Exercise, Warm-up, Self-monitoring, Cool-Down, Home Exercise > 30 min Daily and Sitting Time <3 hours/daily Outcomes & Goals Outcomes/Goals: Demonstrates correct Warm-up/exercise Cool-Down (S3) if = 2.5 METs, Verbalizes symptoms of exercise intolerance by Session 3 (S3), Demonstrate safe equipment use (S3) & follows exercise prescrition (6) and Other: See below Intervention & Plan Plan/Intervention: Instruct warm-up & cool-down if exercising at > 2 METs, Instruct on symptoms of exercise intolerance & actions to take, Instruct & monitor on saf, Assess intial functional capacity & safety risk and Other See below 30-day Reassessments 30 day Reassessments:: Progressing Reassessment Notes & Comments:: Pt oriented to exercise equipment and equipment safety. Pt is able to return demonstration. Exercise - 60-day Assessment Physician Prescribed Exercise Modalities: Treadmill, Schwinn Airdyne AD-7 and SciFit Stepper Exercise - 90-day Assessment Physician Prescribed Exercise Modalities: Treadmill, Schwinn Airdyne AD-7 and SciFit Stepper Exercise - Final/Discharge Physician Prescribed Exercise Modalities: Treadmill, Schwinn Airdyne AD-7 and SciFit Stepper Nutrition - 30-Day Assessment Program Goals Nutrition Program Goals Patient has diagnosis of Hyperlipidemia (ICD E78)?: Yes Visit Date of Eval: 08/06/24 Session #:: 10 Cholesterol/Lipids (Other Core Measures) Determine presence & major risk factors that modify LDL goal: Hypertension or hypertensive medication, Low HDL cholesterol <40 mg/dL*, Family history of premature CHD in Male < 55 years: female <65 yearsFa and Age men > 45 years; women >/= 55 years Outcomes/Goals: Pt IDs own risk factors & lifestyle modifications by Session 10, Verbalizes symptoms of angina & response by session 3., Pt independently manages and Other Additional Outcomes/Goals: Intervention/Plan: Advocate for lipid panel cholesterol medication if applicable, Instruct on personal lipid levels & lipid goals/NCEP guidelines, Instruct on cholesterol and Other additional plan/int Referral to dietitian:: No 30-day Reassessments:: Progressing Reassessment Notes & Comments:: Pt is scheduled to attend nutrition class next week. Pt is encouraged to log his intake. Diabetes (Other Core Measures) Diabetes Type: Diagnosis Type II ICD-10 E11 Insulin dependent injection/pump?: Yes Non-Insulin Dependent?: Yes Do you monitor your blood sugar at home?: Yes Referral to Diabetic Clinic:: No (declines) 30-day Reassessments:: Progressing Reassessment Notes & Comments:: Pt is to attend nutrition class. Pt is encouraged to meet with supervisor reactor fueling 1 on 1. Weight Mgt (Other Care) Height: 6 ft 1 in Weight:: 258 lb 8 oz BMI: 34.1 Diagnosis Overweight/Obesity BMI> 30% ICD-10 E66: Yes Diagnosis High BMI/Morbid Obesity BMI> 35% ICD-10 Z68: No Outcomes/Goals: Pt sets, maintains & shows weight loss goal & trend during rehab and Other additional outcomes/goals Intervention/Plan: Instruct on ideal BMI & set weight loss goal w/patient, Assist pt to ID & incorporate diet changes for weight loss by S9, Refer to Structured Weight Loss program as appropriate, Encourage goal of using 250-300dcal per session for weight loss and Other additional plan/interventions 30 day Reassessments:: Progressing Reassessment Notes & Comments:: Pt is down 7.5 lbs from his eval weight. Healthy Eating Habits Will attend diet classes:: Yes Outcomes/Goals:: Consume diet rich in vegs,fruits,whole grain/high fiber,fish,lean meat, Limit sat/trans fats,cholesterol & added salts & sugars and Other additional outcome/goals: Intervention/Plan:: Assess current eating habits and Other Additional plan/interventions 30-day Reassessments:: Progressing Reassessment Notes & Comments:: pt is to attend nutrition class next week. Encouraging pt to have a 1 on 1 session with supervisor reactor fueling. Education Gave educational materials for:: Signs & symptoms of hypoglycemia, Signs & symptoms of hyperglycemia, Relate diabetes to coronary artery disease and Healthy eating Nutrition - 60-Day Assessment Weight Mgt (Other Care) Height: 6 ft 1 in Weight:: 258 lb 8 oz BMI: 34.1 Core - 30-Day Assessment Visit Date of Eval: 08/06/24 Session #:: 10 Medication Compliance Preventative Medication(s):: Aspirin, Statin/lipid and Beta emmie H/O mental health issues: depression, anxiety, or addiction?: No Doesn?t believe in the benefits of treatment?: No Believes medications are unnecessary or harmful?: No Has a concern about medication side effects?: No Expresses concern over the cost of medications?: No Outcomes/Goals: Verbalizes medications,desired effect & common side effects @ DC, Pt self-reports following medication regimen, Keeps card in wallet w/medications listed by DC and Other additional outcome/goals: Interventions/plans: Instruct on medication effects & side effects, Review medication list w/patient every two weeks, Instruct importance of taking meds as ordered & assist problem solving and Other additional 30-day Reassessments:: Progressing Reassessment Notes & Comments:: 07/07 off lasix, off amlodipine and started Toprol 50 mg daily. Tobacco Use Tobacco Use: Non-smoker Hypertension Resting Blood Pressure:: 114/70 [place] [employer] Hypertension Guidelines Peak Exercise Blood Pressure:: 114/80 Outcomes/Goals: Able to verbalize/achieve optimal blood pressure <130/80, Incorporates diet changes & exercise for blood pressure control by DC and Other additional outcomes/goals Interventions/plan: Instruct on optimal blood pressure, hypertension & medications, Instruct on effects of sodium, alcohol, stress, exercise &hypertension and Other additional plan/interventions 30 day Reassessments:: Progressing Reassessment Notes & Comments:: Pt recently had med changes. Bp's are within AHA normal limits. Will continue to monitor and report to pt's physician if necessary. Tobacco Cessation Referral Smoking Cessation Referral:: No Individual Education/Counseling:: No Education Schedule Given:: Yes Psychosocial - 30-Day Assess VIsit Date of Eval: 08/06/24 Session #:: 10 History of previous Mental disease:: No Target Goals Target Goals Psychosocial Test Tool Used:: [employer] QOL Cardiac and PHQ-9 Questionnaire phq-9 Severity Referral to Behavioral Health PS - Interventions: Yes: Attend Stress Management Classes Outcomes/Goals: See list Psychosocial Outcomes/Goals:: ID's personal stressors & 2 strategies to manage stress by discharge and Other Additional outcome/goals: Intervention/Plan: See List Interventions/Plan:: Assess stressors,coping strategies & signs of derpression on admission, Instruct/assist pt to develop coping & personal stress Mgt strategies, Refer to Behavioral Health if appropriate, Refer to Physician if appropriate, Instruct patient to recognize signs & symptoms of depression, Instruct patient to recog and Other additional plan/intervention 30-day Reassessments: 30 day Reassessments:: Met Reassessment Notes & Comments:: pt denies psychosocial issues at this time. Psychosocial - 60-Day Assess Target Goals Target Goals Referral to Behavioral Health PS - Interventions: Yes: Attend Stress Management Classes Outcomes/Goals: See list Psychosocial Outcomes/Goals:: ID's personal stressors & 2 strategies to manage stress by discharge and Other Additional outcome/goals: Psychosocial - 90-Day Assess Target Goals Target Goals Referral to Behavioral Health PS - Interventions: Yes: Attend Stress Management Classes Psychosocial - Final Assessmen Target Goals Target Goals Referral to Behavioral Health PS - Interventions: Yes: Attend Stress Management Classes Nutrition - 90-Day Assessment Weight Mgt (Other Care) Height: 6 ft 1 in Weight:: 258 lb 8 oz BMI: 34.1 Nutrition - Final Assessment Weight Mgt (Other Care) Height: 6 ft 1 in Weight:: 258 lb 8 oz BMI: 34.1
[2024-08-06 08:28] VITALS: BP 114/70; BMI 34.1
== END 2024-08-07 23:59 ==
LOC: CR 13:00
PROVIDERS: PCP Nurse Practitioner Family; Referring Provider Thoracic Surgery (Cardiothoracic Vascular Surgery); Visit Provider Thoracic Surgery (Cardiothoracic Vascular Surgery)
DX: Z95.1 Presence of aortocoronary bypass graft (principal)
CPT/HCPCS: 93798

== ENCOUNTER 2024-08-11 13:00 | Outpatient (RCR) | payer OTHER, SELFPAY ==
[2024-08-08 00:33] VITALS: BP 114/70
--- NOTE | 2024-09-05 08:29 | PCM.CR.ITP ---
Psychosocial - Initial Assess Target Goals Target Goals Nutrition Survey Nutrition Survey Instructions Scoring Instructions Exercise - 60-day Assessment Visit Date of Eval: 09/05/24 Session #:: 12 Comments:: Pt has not attended CR since 08/11/24. Have made multiple attempts to contact pt. Psychosocial - 30-Day Assess Target Goals Target Goals Psychosocial - 60-Day Assess Target Goals Target Goals Psychosocial - 90-Day Assess Target Goals Target Goals Psychosocial - Final Assessmen Target Goals Target Goals
== END 2024-09-06 23:59 ==
LOC: CR 13:00
PROVIDERS: PCP Nurse Practitioner Family; Referring Provider Thoracic Surgery (Cardiothoracic Vascular Surgery); Visit Provider Thoracic Surgery (Cardiothoracic Vascular Surgery)
DX: Z95.1 Presence of aortocoronary bypass graft (principal)
CPT/HCPCS: 93798

== ENCOUNTER 2024-09-08 04:22 | Outpatient (RCR) | payer OTHER, SELFPAY ==
[2024-09-07 00:45] VITALS: BP 114/70
== END 2024-10-07 23:59 ==
LOC: CR 04:22
PROVIDERS: PCP Nurse Practitioner Family; Referring Provider Thoracic Surgery (Cardiothoracic Vascular Surgery); Visit Provider Thoracic Surgery (Cardiothoracic Vascular Surgery)
DX: Z95.1 Presence of aortocoronary bypass graft (principal)
CPT/HCPCS: 93798

== ENCOUNTER → 2024-09-11 | Outpatient (CLI) | payer OTHER, SELFPAY ==
--- NOTE | 2024-09-11 07:58 | ECHOCS_ITS ---
Reason For Study: CAD/ASHD Procedure This was a 2D Doppler, Color Flow transthoracic echocardiogram. The study was technically difficult. Contrast injection was performed. Exam performed in department. Left Ventricle Mildly dilated left ventricular cavity. Mild left ventricular concentric hypertrophy. Severe apical hypokinesis to akinesis. Septal hypokinesis. Estimated LVEF 30 to 35%. Stage I diastolic dysfunction. Right Ventricle Normal right ventricle. Atria The left atrium is mildly enlarged. Normal right atrium. Mitral Valve Trivial mitral valve insufficiency. Tricuspid Valve Trivial tricuspid valve insufficiency. Unable to estimate RV systolic pressure due to insufficient tricuspid regurgitant envelope. Aortic Valve Trisinus/trileaflet aortic valve. Pulmonic Valve The pulmonic valve is not well visualized. Great Vessels Normal sized aortic root. Pericardium/Pleural No pericardial effusion. Medication 22 gauge I.V. with prn adaptor inserted into left arm. Diluted definity 3ml given slow IV push to enhance endocardial definition. MMode/2D Measurements & Calculations LVIDd: 5.8 cm IVSd: 0.83 cm LVOT diam: 2.0 cm LVIDs: 4.1 cm LVPWd: 1.2 cm FS: 28.7 % LVOT area: 3.1 cm2 Ao root diam: 3.0 cm LAV(MOD-bp): 53.7 ml LVAd ap4: 42.6 cm2 LAV(MOD-bp) Indexed: 22.5 ml/m2 LVLd ap4: 9.3 cm LAV(MOD-sp2): 50.9 ml EDV(MOD-sp4): 155.6 ml LAV(MOD-sp4): 53.1 ml EDV(sp4-el): 164.9 ml LVAs ap4: 33.9 cm2 LVLs ap4: 8.5 cm ESV(MOD-sp4): 110.1 ml ESV(sp4-el): 115.4 ml EF(MOD-sp4): 29.2 % EF(sp4-el): 30.0 % SV(MOD-sp4): 45.4 ml SV(sp4-el): 49.5 ml LA A4 area: 19.1 cm2 SI(MOD-sp4): 19.0 ml/m2 LA dimension(2D): 4.3 cm RA A4 area: 17.4 cm2 TAPSE: 2.0 cm Time Measurements MV dec time: 0.21 sec Doppler Measurements & Calculations MV E max messi: 106.5 cm/sec Lat Peak E' Messi: 9.5 cm/sec Med Peak E' Messi: 7.7 cm/sec MV A max messi: 101.3 cm/sec E/E' lat: 11.3 E/E' med: 13.8 MV E/A: 1.1 MV V2 max: 126.6 cm/sec MV dec slope: 518.6 cm/sec2 Ao V2 max: 123.3 cm/sec MV max P.4 mmHg Ao max P.1 mmHg MV V2 mean: 77.3 cm/sec Ao V2 mean: 89.8 cm/sec MV mean P.9 mmHg Ao mean P.7 mmHg MV V2 VTI: 35.3 cm Ao V2 VTI: 25.4 cm MVA(VTI): 2.3 cm2 AV (velocity ratio): 1.0 MARJAN(I,D): 3.2 cm2 MARJAN(V,D): 3.1 cm2 LV V1 max: 122.3 cm/sec SV(LVOT): 82.3 ml PA V2 max: 97.0 cm/sec LV V1 max P.0 mmHg PA V2 mean: 68.7 cm/sec LV V1 mean P.7 mmHg LV V1 mean: 91.7 cm/sec LV V1 VTI: 26.6 cm ECHO/Echo Complete W/ Contrast Interpretation Summary Mildly dilated left ventricular cavity. Mild left ventricular concentric hypert rophy. Severe apical hypokinesis to akinesis. Septal hypokinesis. Estimated LVEF 30 to 35%. Stage I diastolic dysfunction. The left atrium is mildly enlarged. The study was technically difficult. Ordering Physician: Kayla Gavin Referring Physician: Kayla Gavin Performed By: Cherri Bolton RCS
== END | disposition home or self-care (01) ==
LOC: CVS 07:58
PROVIDERS: PCP Nurse Practitioner Family; Referring Provider Internal Medicine Cardiovascular Disease; Visit Provider Internal Medicine Cardiovascular Disease
DX: I25.10 Atherosclerotic heart disease of native coronary artery without angina pectoris (principal); Z95.1 Presence of aortocoronary bypass graft
CPT/HCPCS: 93306; Q9957; A4216; C8929